=== PATIENT | female | born 1965 | race Hispanic/Latino ===

== ENCOUNTER 2021-05-05 14:21 | Emergency (ER) | payer OTHER ==
[~2021-05-05] VITALS: Ht 157.5 cm; Wt 74.4 kg
== END 2021-05-05 17:18 | disposition home or self-care (01) ==
LOC: FSED 14:56
DX: H92.03 Otalgia, bilateral (principal); R20.2 Paresthesia of skin; H69.80 Other specified disorders of Eustachian tube, unspecified ear
CPT/HCPCS: 70450; 99283